=== PATIENT | female | born 1985 | race Caucasian/White ===

== ENCOUNTER 2018-05-06 01:51 | Outpatient (CLI) | payer MEDICAID, SELFPAY ==
[2018-05-06 11:02] LABS: HCT 41.8 % (36.0-46.0); HGB 13.5 g/dL (12.0-15.5); Mean Corp. HGB Concentration 32.3 g/dL (32.0-36.0); Mean Corpuscular Hemoglobin 29.5 pg (27.0-33.0); Mean Corpuscular Volume 91.5 fL (80-95); Mean Platelet Volume 10.1 fL (8.0-11.0); Platelet Count 294 x1000/uL (130-400); RBC 4.57 m/cumm (4.00-5.20); RBC Distribution Width 12.9 % (11.7-14.6); White Blood Cell Count 11.45 k/cumm (4.4-10.8)
[2018-05-06 11:23] LABS: ALT 21 U/L (12-78); AST 15 U/L (15-37); Albumin 3.7 g/dL (3.4-5.0); Alkaline Phosphatase 121 U/L (46-116); Anion Gap 9.1 mmol/L (3-11); BUN 8 mg/dL (7-18); CO2 28.9 mmol/L (21.0-32.0); CREATININE 0.78 mg/dL (0.55-1.02); Calcium 8.5 mg/dL (8.5-10.1); Chloride 103 mmol/L (98-107); Glucose 97 mg/dL (70-100); Potassium 3.9 mmol/L (3.5-5.1); Sodium 141 mmol/L (136-145); TSH (W/Ref FT4) 2.07 uIU/mL (0.358-3.74); Total Protein 7.1 g/dL (6.4-8.2)
[2018-05-07 10:04] LABS: Thyroperoxidase Antibody <28 U/mL (<61)
== END 2018-05-06 02:11 ==
PROVIDERS: PCP Family Medicine; Visit Provider Family Medicine
DX: R53.83 Other fatigue (principal)
CPT/HCPCS: 36415; 80053; 85027; 84443; 86376

== ENCOUNTER 2018-10-22 01:01 | Outpatient (CLI) | payer MEDICAID, SELFPAY ==
[2018-10-22 12:11] LABS: ALT 27 U/L (12-78); AST 17 U/L (15-37); Albumin 3.7 g/dL (3.4-5.0); Alkaline Phosphatase 129 U/L (46-116); Bilirubin, Total 1.3 mg/dL (0.2-1.0); GGT 30 U/L (5-55); Total Protein 7.2 g/dL (6.4-8.2)
[2018-10-22 12:23] LABS: Bilirubin, Direct 0.25 mg/dL (0.00-0.20)
== END 2018-10-22 01:21 ==
PROVIDERS: PCP Family Medicine; Visit Provider Family Medicine
DX: R94.5 Abnormal results of liver function studies (principal)
CPT/HCPCS: 36415; 80076; 82977

== ENCOUNTER 2019-04-10 10:54 | Outpatient (REF) | payer SELFPAY ==
--- NOTE | 2019-04-10 10:30 | PAPFT_PTH ---
PATIENT: Marisa Slaughter LOC: [facility] U#:[id number] AGE/SX: 33/F ROOM: RE04/10/[address]: MONSE Brand : 1985 BED: DIS: 04/10/2019 SPEC #: [id number] RECD: 04/10/19 12:58 STATUS: SAE REQ #: [id number] YU: 04/10/19 10:[address]: Brandie Larios DEPT: [facility] Cytology RECD BY: Viola Torres ENTERED: 04/10/19 12:58 SP TYPE: PAPFT OTHR DR: Сергей Reynolds MD Tissues: 1 - CX/ENDOCX FOR PAP SMEARS Procedures: PAP THIN PREP/UVM Screening Comments: [id number] (UNSATISFACTORY FOR EVALUATION)
== END 2019-04-10 11:14 ==
LOC: LBN 10:54
PROVIDERS: PCP Family Medicine; Visit Provider Nurse Practitioner Family
DX: Z12.4 Encounter for screening for malignant neoplasm of cervix (principal); Z11.51 Encounter for screening for human papillomavirus (HPV); R87.615 Unsatisfactory cytologic smear of cervix
CPT/HCPCS: 88142; 87624

== ENCOUNTER 2019-05-08 09:07 | Outpatient (REF) | payer SELFPAY ==
--- NOTE | 2019-05-08 08:30 | PAPFT_PTH ---
PATIENT: Marisa Slaughter LOC: [facility] U#:[id number] AGE/SX: 33/F ROOM: RE05/08/[address]: MONSE Brand : 1985 BED: DIS: 05/08/2019 SPEC #: [id number] RECD: 05/08/19 12:59 STATUS: MEÑOServando RELavinia #: [id number] YU: 05/08/19 08:[address]: Brandie Larios DEPT: [facility] Cytology RECD BY: Viola Torres ENTERED: 05/08/19 13:00 SP TYPE: PAPFT OTHR DR: Сергей Reynolds MD Tissues: 1 - CX/ENDOCX FOR PAP SMEARS Procedures: PAP THIN PREP/UVM Screening HPV DNA PROBE Comments: [id number]
== END 2019-05-08 09:27 ==
LOC: LBN 09:07
PROVIDERS: PCP Family Medicine; Visit Provider Nurse Practitioner Family
DX: Z12.4 Encounter for screening for malignant neoplasm of cervix (principal); Z11.51 Encounter for screening for human papillomavirus (HPV)
CPT/HCPCS: 88142; 87624

== ENCOUNTER → 2024-03-25 00:55 | Outpatient (CLI) | payer MEDICARE, MEDICAID, SELFPAY ==
--- NOTE | 2024-03-25 14:23 | DI.US_ITS ---
APPROVED REPORT EXAM: Comprehensive 2D, Doppler, and color-flow Echocardiogram Patient Location: Out-Patient Rate Clerk: Sujata Rainey RDCS (AE) Indications: Systolic Murmur Other Information Study Quality: Adequate Conclusion Normal left ventricular wall thickness and chamber size. Ejection fraction is 60%. Wall motion is n ormal Normal right ventricular size and function Both atria are normal in size There is no structural or hemodynamically significant valvular disease Wall motion Left Ventricle The left ventricle is normal size. The left ventricular systolic function is normal. The left ventric ular ejection fraction is within the normal range. There is normal left ventricular wall thickness. T here is normal LV segmental wall motion. There is no ventricular septal defect visualized. LVEF is 60 %. Right Ventricle The right ventricle is normal size. The right ventricular systolic function is normal. Atria The left atrium size is normal. The right atrium size is normal. The interatrial septum is intact wit h no evidence for an atrial septal defect. Aortic Valve The aortic valve is normal in structure. Aortic valve is trileaflet. There is no aortic valvular sten osis. No aortic regurgitation is present. Mitral Valve The mitral valve is normal in structure. No evidence of mitral valve stenosis. Trace mitral regurgita tion. Tricuspid Valve The tricuspid valve is normal in structure. There is no tricuspid valve stenosis. Trace tricuspid reg urgitation. Unable to assess PA pressure. Pulmonic Valve The pulmonary valve is normal in structure. There is no pulmonic valvular stenosis. Trace pulmonic re gurgitation. Great Vessels The aortic root is normal in size. The ascending aorta is normal in size. Aortic arch is normal in ca liber. IVC is normal in size and collapses >50% with inspiration. Pericardium There is no pericardial effusion. 2D Dimensions IVSD d PLAX 0.87 cm F: 0.6-1.0 Ao Root d 2.77 cm F: 2.7 - 3.3 LVPW d PLAX 0.88 cm F: 0.6 - 1.0 Ao Asc Diam d 3.17 cm F: 2.3 - 3.1 LVID d PLAX 4.40 cm F: 3.8 - 5.2 LVDs 3.05 cm F: 2.2 - 3.5 LV EF Teichholz 58.3 % FS 30.57 % LV EDV (Teich) 87.3 mL LV ESV (Teich) 36.4 mL M-Mode TAPSE 1.86 cm (M/F) >1.7 Auto EF LV EDV A4C 134.8 mL LV EDV A2C 122.1 mL LV EDV BP 128.3 mL LV ESV A4C 52.0 mL LV ESV A2C 50.4 mL LV ESV BP 51.3 mL LVEF(%) A4C 61.5 % LVEF(%) A2C 58.7 % LVEF(%) BP 60.0 % LV SV A4C 82.8 ml LV SV A2C 71.7 ml LV SV BP 77.0 ml LV CO A4C 5.1 L/min LV CO A2C 4.7 L/min LV CO BP 4.9 L/min HR A4C 61.65 BPM HR A2C 65.58 BPM LV EDV Index (BP) LA Volume LA Length A4C 4.1 cm LA Length A2C 4.6 cm LA Area A4C s 11.91 cm2 LA Area A2C s 13.71 cm2 LA Vol A4C A-L 29.04 mL LA Vol A2C A-L 34.58 mL LA Vol Biplane A-L 33.4 mL LA Vol/BSA A4C A-L LA Vol/BSA A2C A-L LA Vol/BSA BP A-L 14.7 mL/m2 LA Vol A4C MOD 26.7 mL LA Vol A2C MOD 32.5 mL LA Vol BP MOD 30.9 mL RA Volume RA Area A4C 8.9 cm2 RA ESV A4C (A-L) 16.5mL RA Vol/BSA A4C A-L RA Length A4C 4.1 cm RA ESV A4C (MOD) 16.1mL LV Diastology MV E' medial 0.118 (>0.07 m/s) MV E Vmax 0.76 (0.4-1.3 m/s) MV E/E' MED 6.41 (<14) MV A Vmax 0.75 (0.4-1.3 m/s) MV E' lateral 0.124 (>0.1 m/s) E/A Ratio 1.0 MV E/E' LAT 6.11 (<14) MV E' Average 0.121 m/s MV E/E'(average) 6.26 Aortic Valve AoV Vmax 1.77 m/s LVOT Vmax 1.27 m/s AoV Peak Grad 12.6 mmHg LVOT Peak Grad 6.4 mmHg AoV Area (Vmax) 1.97 cm2 LVOT VTI 0.276 m AoV VTI 0.367 m LVOT Mean Grad 3.3 mmHg AoV Mean Genaro. 1.25 m/s LVOT SV 75.98 mL AoV Mean Grad 7.1 mmHg LVOT Diam s 1.85 cm AoV Area (VTI) 2.07 cm2 AV Regurg Peak Gr. 12.57 mmHg Velocity Ratio 0.72 Mitral Valve MV DT 315 (160-240 msec) Pulmonary Valve PV Vmax 1.17 (0.5-1.5 m/s) RVOT Vmax 0.75 m/s PV Peak Grad 5.5 mmHg RVOT Peak Gr. 2.2 mmHg PV Mean Genaro 0.79 m/s RVOT VTI 0.172 m PV Mean Grad 2.8 mmHg RVOT Mean Gr. 1.3 mmHg Tricuspid Valve TV S' 0.13 m/s
== END ==
PROVIDERS: PCP Nurse Practitioner Family; Visit Provider Nurse Practitioner Family
DX: R01.1 Cardiac murmur, unspecified (principal)
CPT/HCPCS: 93306

== ENCOUNTER 2024-05-11 11:18 | Outpatient (REF) | payer MEDICARE, MEDICAID, SELFPAY ==
--- NOTE | 2024-05-11 11:00 | PAPFT_PTH ---
PATIENT: Marisa Slaughter LOC: [facility] U#:[id number] AGE/SX: 38/F ROOM: RE05/11/[address]: Maddi Pabon NP : 1985 BED: DIS: 05/11/2024 SPEC #: [id number] RECD: 05/11/24 12:59 STATUS: SAE REQ #: [id number] YU: 05/11/24 11:[address]: Maddi Pabon NP DEPT: [facility] Cytology RECD BY: Viola Torres ENTERED: 05/11/24 13:00 SP TYPE: PAPFT OTHR DR: Williams Conti DNP Tissues: 1 - CX/ENDOCX FOR PAP SMEARS Procedures: PAP THIN PREP/UVM Screening HPV DNA PROBE Comments: [id number] (HPV 16 & 18/45)
== END 2024-05-11 11:19 | disposition home or self-care (01) ==
LOC: LBN 11:18
PROVIDERS: PCP Nurse Practitioner Family; Visit Provider Nurse Practitioner Women's Health
DX: Z01.419 Encounter for gynecological examination (general) (routine) without abnormal findings; Z30.431 Encounter for routine checking of intrauterine contraceptive device
CPT/HCPCS: 88142; 87624

== ENCOUNTER 2024-11-19 01:39 | Outpatient (CLI) | payer OTHER, SELFPAY ==
--- NOTE | 2024-11-19 | DI.RAD_ITS ---
Exam(s) XR KNEE LT 4V AP,LAT,YURI,PAT EXAM: XR KNEE LT 4V AP,LAT,YURI,PAT CLINICAL HISTORY: DISABILITY DETERMINATION,LT KNEE PAIN,STATE SEVERITY OF DEGENERATION,MILD,. TECHNIQUE: 2D digital imaging was performed. Three views. COMPARISON: No exams were available for comparison FINDINGS: BONES: No acute fracture is present. No bony destructive lesion is seen. JOINTS: The knee is normally aligned. No joint effusion is seen. The joint spaces are maintained. SOFT TISSUE: Normal. IMPRESSION: Normal radiographs of the left knee. No visible degenerative changes. DATA REPOSITORY: RADIATION DOSE DELIVERED:
--- NOTE | 2024-11-19 | DI.RAD_ITS ---
Exam(s) XR HIP RT COMPLETE AP PELVIS EXAM: XR HIP RT COMPLETE AP PELVIS CLINICAL HISTORY: DISABILITY DETERIMNATION,Z02.71,RT HIP AND PELVIC PAIN,STATE SEVERITY OF. TECHNIQUE: 2D digital imaging was performed. Two views COMPARISON: No exams were available for comparison FINDINGS: BONES: No acute fracture is present. No bony destructive lesion is seen. There is partial sacraliza tion of the right L5 transverse process. JOINTS: No dislocation present. The hip joint spaces are maintained. The SI joints and pubic symph ysis are unremarkable. SOFT TISSUE: Normal. IUD in place. IMPRESSION: No acute abnormality. No visible degenerative changes. DATA REPOSITORY: RADIATION DOSE DELIVERED:
== END 2024-11-19 01:59 ==
LOC: DI 01:39
PROVIDERS: PCP Nurse Practitioner Family; Visit Provider Pediatrics Pediatric Rheumatology
DX: Z02.71 Encounter for disability determination (principal); M25.562 Pain in left knee; R10.2 Pelvic and perineal pain; M25.551 Pain in right hip
CPT/HCPCS: 73502; 73564

== ENCOUNTER 2024-12-08 01:17 | Outpatient (CLI) | payer MEDICARE, MEDICAID, SELFPAY ==
--- NOTE | 2024-12-08 11:58 | DI.MAMMO_ITS ---
Exam(s) MAMMO SCREENING EXAM: MAMMO SCREENING CLINICAL HISTORY: screening,Z12.39, BASELINE TECHNIQUE: Mammograms were interpreted according to the usual protocol including computer analysis w N-1-1 CAD system, tomosynthesis and C-view imaging. COMPARISON: No exams were available for comparison. Baseline examination. FINDINGS: The breasts are composed of scattered fibroglandular densities, Breast Density category B. No suspicious masses or suspicious microcalcifications are seen. No skin thickening or abnormal axillary lymph nodes are seen. IMPRESSION: BI-RADS Category 1, Negative mammogram Yearly screening mammography is recommended. Breast Density - Category B, scattered fibroglandular densities. A negative radiographic report should not delay biopsy if a dominant or clinically suspicious mass is present. Up to ten percent of cancers are not identified on mammography. A negative report may reinforce clinical impression. Adenosis and dense breasts may obscure an underlying neoplasm. False positive reports average 6 to 10%. Patient will receive a letter notifying them of these results.
== END 2024-12-08 01:37 ==
LOC: DI 01:17
PROVIDERS: PCP Nurse Practitioner Family; Visit Provider Nurse Practitioner Family
DX: Z12.31 Encounter for screening mammogram for malignant neoplasm of breast (principal); R92.323 Mammographic fibroglandular density, bilateral breasts
CPT/HCPCS: 77063; 77067

== ENCOUNTER 2024-12-30 11:04 | Outpatient (CLI) | payer MEDICARE, SELFPAY ==
[2024-12-30 12:28] LABS: HCT 41.5 % (36.0-46.0); HGB 14.1 g/dL (11.2-15.7); MCH 30.2 pg (27.0-33.0); MCV 89 fL (80-95); MPV 9.4 fL (8.0-11.0); Platelet Count 272 10^3/uL (130-400); RBC 4.67 10^6/uL (3.93-5.22); RDW 12.2 % (11.7-14.6); RDW-SD 39.5 fL; WBC 12.01 10^3/uL (4.4-10.8)
[2024-12-30 12:39] LABS: ESR 17 mm/hr (0-20)
[2024-12-30 12:43] LABS: Hemoglobin A1C 5.5 % (<5.7)
[2024-12-30 13:04] LABS: Calculated LDL 134 mg/dL (<100); Cholesterol 221 mg/dL (<200); HDL Cholesterol 45 mg/dL (>or=50); TSH (W/Ref FT4) 1.95 uIU/mL (0.36-3.74); Triglyceride 210 mg/dL (<150); Vitamin D 25 Total 34 ng/mL (30-100)
[2024-12-30 13:17] LABS: C-Reactive Protein 1.36 mg/dL (<or=0.5)
[2024-12-31 09:40] LABS: Cyclic Citrullinated Peptide <2.5 U/mL (<5.0)
[2024-12-31 12:00] LABS: ANA Interpretation Negative (Negative)
== END 2024-12-30 11:05 | disposition home or self-care (01) ==
PROVIDERS: PCP Nurse Practitioner Family; Referring Provider Nurse Practitioner Family; Visit Provider Nurse Practitioner Family
DX: R53.82 Chronic fatigue, unspecified (principal); M24.80 Other specific joint derangements of unspecified joint, not elsewhere classified; E66.9 Obesity, unspecified; Z13.220 Encounter for screening for lipoid disorders
CPT/HCPCS: 36415; 80061; 82306; 85027; 85652; 86200; 83036; 84443; 86038; 86140